=== PATIENT | female | born 1995 | race Caucasian/White ===

== ENCOUNTER 2016-12-06 14:16 | Emergency (ER) | payer SELFPAY ==
--- NOTE | 2016-12-06 14:57 | EDM.PDOC ---
ED HPI GENERAL MEDICAL PROBLEM - General Chief Complaint: Head Injury Stated Complaint: POSSIBLE CONCUSSION Time Seen by Provider: 12/06/16 14:57 Source of Information: Reports: Patient - History of Present Illness INITIAL COMMENTS - FREE TEXT/NARRATIVE: Patient is here today for evaluation of several complaints. She initially reports that she was playing with a squirt gun and a piece broke part of it hit her in the right side of the head on Sunday evening. She continues to have right-sided headaches and fullness behind bilateral eyes. She also reports a nonproductive persistent cough and fever as well as myalgias. She has a decreased appetite but is drinking fluids well. She denies any sinus symptoms or chest/abdominal pain Right Head Pain Score (Numeric/FACES): 7 - Related Data Allergies Allergy/AdvReac Type Severity Reaction Status Date / Time No Known Allergies Allergy Verified 03/11/16 02:10 Home Meds: Home Meds . [No Known Home Meds] 12/06/16 [History] Past Medical History - Past Health History Medical/Surgical History: Denies Medical/Surgical History Psychiatric History: Reports: Anxiety, Depression, Suicide Attempt Other Psychiatric History: stopped taking prozac on her own- at least over a year ago Social & Family History - Tobacco Use Smoking Status *Q: Never Smoker - Alcohol Use Days Per Week of Alcohol Use: 7 Number of Drinks Per Day: 2 Total Drinks Per Week: 14 - Recreational Drug Use Recreational Drug Use: No ED ROS GENERAL - Review of Systems Review Of Systems: See Below Constitutional: Reports: Fever, Chills, Weakness, Fatigue HEENT: Reports: Vision Change. Denies: Ear Discharge, Ear Pain, Eye Discharge, Eye Pain, Sinus Problem Respiratory: Reports: Cough. Denies: Shortness of Breath, Wheezing, Sputum Cardiovascular: Reports: No Symptoms Endocrine: Reports: Fatigue GI/Abdominal: Reports: Decreased Appetite. Denies: Abdominal Pain, Nausea, Vomiting Musculoskeletal: Reports: Muscle Pain. Denies: Neck Pain, Back Pain Skin: Reports: No Symptoms Neurological: Reports: No Symptoms Psychiatric: Reports: No Symptoms ED EXAM, HEAD INJURY - Physical Exam Exam: See Below Exam Limited By: No Limitations General Appearance: Alert, WD/WN, No Apparent Distress Head: Normocephalic, Scalp Hematoma (swelling without ecchymosis above right temporal area). No: Scalp Lacerations, Scalp Abrasions, Active Bleeding Eyes: Right Eye: Normal Inspection, PERRL Ears: Normal External Exam, Normal Canal, Normal TMs Nose: Normal Inspection, Normal Mucousa Throat/Mouth: Normal Inspection, Normal Oropharynx Neck: Non-Tender, Full Range of Motion Respiratory: No Respiratory Distress, Lungs Clear, Normal Breath Sounds Cardiovascular: Normal Peripheral Pulses, Regular Rate, Rhythm, No Murmur GI/Abdominal Exam: Normal Bowel Sounds, Soft, Non-Tender Back Exam: Normal Inspection Course - Vital Signs Last Recorded V/S: Last Vital Signs Temp 101.2 F H 12/06/16 14:47 Pulse 112 H 12/06/16 14:47 Resp 20 12/06/16 14:47 BP 129/81 12/06/16 14:47 Pulse Ox 97 12/06/16 14:47 - Orders/Labs/Meds Orders: Active Orders 24 hr Category Date Time Status Visual Acuity [Vision Test] [RC] ASDIRECTED Care 12/06/16 15:42 Active CXR [Chest 2V] [CR] Stat Exams 12/06/16 15:05 Taken Head wo Cont [CT] Stat Exams 12/06/16 16:40 Taken Labs: Laboratory Tests 12/06/16 12/06/16 12/06/16 Range/Units 15:05 15:05 16:25 WBC 8.74 (3.98-10.04) K/mm3 RBC 4.25 (3.98-5.22) M/mm3 Hgb 13.1 (11.2-15.7) gm/L Hct 37.9 (34.1-44.9) % MCV 89.2 (79.4-94.8) fl MCH 30.8 (25.6-32.2) pg MCHC 34.6 (32.2-35.5) g/dl RDW Std Deviation 37.8 (36.4-46.3) fL Plt Count 234 (182-369) K/mm3 MPV 8.8 L (9.4-12.3) fl Neutrophils % (Manual) 87 H (40-60) % Band Neutrophils % 0 (0-10) % Lymphocytes % (Manual) 7 L (20-40) % Atypical Lymphs % 0 % Monocytes % (Manual) 5 (2-10) % Eosinophils % (Manual) 1 (0.7-5.8) % Basophils % (Manual) 0 L (0.1-1.2) Platelet Estimate Adequate Plt Morphology Comment Normal RBC Morph Comment Normal HCG, Qual Negative (NEGATIVE) Urine Color Yellow (Yellow) Urine Appearance Clear (Clear) Urine pH 6.0 (5.0-8.0) Ur Specific [place] 1.015 (1.005-1.030) Urine Protein 2+ H (Negative) Urine Glucose (UA) Negative (Negative) Urine Ketones Negative (Negative) Urine Occult Blood 1+ H (Negative) Urine Nitrite Negative (Negative) Urine Bilirubin Negative (Negative) Urine Urobilinogen 1.0 (0.2-1.0) Ur Leukocyte Esterase 1+ H (Negative) Urine RBC 0-5 (0-5) /hpf Urine WBC 5-10 H (0-5) /hpf Ur Epithelial Cells 5-10 H (0-5) /hpf Amorphous Sediment Few H (NOT SEEN) /hpf Urine Bacteria Few (FEW) /hpf Urine Mucus Not seen (FEW) /hpf Meds: Medications Discontinued Medications Generic Name Dose Route Start Last Admin Trade Name Edith PRN Reason Stop Dose Admin Ibuprofen 600 mg 12/06/16 16:24 12/06/16 16:32 Motrin PO 12/06/16 16:25 600 mg ONETIME ONE Administration Ondansetron HCl 4 mg 12/06/16 16:23 12/06/16 16:33 Zofran Odt PO 12/06/16 16:24 4 mg ONETIME ONE Administration - Re-Assessments/Exams Free Text/Narrative Re-Assessment/Exam: Neurologic exam is completely normal. She does have a little bit of a hematoma above her right congregation but no ecchymosis associated with this. As her headaches have persisted without improvement since this injury will obtain CT of her head today. Lungs CTA bilaterally. Chest x-ray was unremarkable official radiology report pending. WBC 8,740 and influenza was negative. I suspect viral etiology for her cough. As she is only on day 3 of this I do not feel antibiotics are indicated at this point. If symptoms should worsen or persist she will follow-up with myself or Tamy Zaldivar in the clinic. 12/06/16 16:[address] was normal, "no acute intracerebral abnormality or injury". Discussed concussion symptoms with the patient and need for brain rest and avoidance of electronic use patient verbalized understanding of this. Should monitor for any worsening of headaches or changes in behavior or vision. If these should occur can follow up in the ER. Advised patient to take Tylenol or ibuprofen as needed for headaches. Viral URI symptoms should continue to improve over the next 7-10 days. If they persist or worsen she can call me in the clinic and can consider antibiotics at that time. 12/06/16 17:52 Departure - Departure Time of Disposition: 17:51 Disposition: Home, Self-Care 01 Condition: Good Clinical Impression: Viral URI with cough, Concussion with no loss of consciousness Concussion Qualifiers: Encounter type: initial encounter Loss of consciousness presence/duration: without LOC Qualified Code(s): S06.0X0A - Concussion without loss of consciousness, initial encounter - Discharge Information Instructions: Post-Concussion Syndrome, [id number] Referrals: PCP,None [Primary Care Provider] - Forms: ED Department Discharge Additional Instructions: You likely sustained a concussion, your CT of her head was normal and there was no sign of a brain bleed. I recommend rest and minimal brain stimulation/electronic use. Take Tylenol or ibuprofen as needed for your headaches. Your chest x-ray and influenza screening were negative. I suspect her cough is due to a virus. Viruses typically resolve in 7-10 days. If at this point it has worsened or persisted contact myself or Tamy Zaldivar in the clinic or certainly return to ER if needed. - My Orders Last 24 Hours: My Active Orders 12/06/16 15:05 CXR [Chest 2V] [CR] Stat 12/06/16 15:42 Visual Acuity [Vision Test] [RC] ASDIRECTED 12/06/16 16:40 Head wo Cont [CT] Stat - Assessment/Plan Last 24 Hours: My Active Orders 12/06/16 15:05 CXR [Chest 2V] [CR] Stat 12/06/16 15:42 Visual Acuity [Vision Test] [RC] ASDIRECTED 12/06/16 16:40 Head wo Cont [CT] Stat
[2016-12-06] MEDS ORDERED: Ondansetron 4 MG Tab.DIS PO ONE (16:23)
[2016-12-06] MEDS ORDERED: Ibuprofen 600 MG Tab PO ONE (16:24)
[2016-12-06 18:49] VITALS: BP 110/72
--- NOTE | 2016-12-10 14:43 | CR ---
Chest: 2 views of the chest were obtained. Comparison: Previous chest x-ray of 09/29/15. Heart size and mediastinum are normal. Lungs are clear. Bony structures are unremarkable. Impression: 1. Nothing acute is identified on 2 view chest x-ray. Diagnostic code #1
--- NOTE | 2016-12-10 14:53 | CT ---
Head CT Technique: Multiple axial sections through the brain were obtained. Intravenous contrast was not utilized. Comparison: No previous intracranial imaging. Findings: Ventricles along with basal cisterns and sulci over the convexities are within normal limits for the patient's age. No abnormal parenchymal densities are seen. No evidence of intracranial hemorrhage. No midline shift or mass effect is seen. Bone window settings were reviewed which show no discrete calvarial abnormality. Mild mucosal thickening is seen within the ethmoid sinuses as well as left maxillary sinus. Impression: 1. Incidental sinus findings. No acute intracranial abnormality is seen. Diagnostic code #2 I agree with preliminary report issued by [facility] ([facility] report finalized on 12/06/16, 6:48 PM Central Time)
== END 2016-12-06 18:04 | disposition home or self-care (01) ==
LOC: JD.ED 14:16
DX: S06.0X0A Concussion without loss of consciousness, initial encounter (principal); J06.9 Acute upper respiratory infection, unspecified; B97.89 Other viral agents as the cause of diseases classified elsewhere; W22.8XXA Striking against or struck by other objects, initial encounter
CPT/HCPCS: 36415; 70450; 71020; 81001; 84703; 85025; 87804; 99285; A9270; 99284

== ENCOUNTER 2017-10-01 16:47 | Emergency (ER) | payer BC ==
[2017-10-01] MEDS ORDERED: Ondansetron 4 MG/2 ML SDV ONE (17:55)
[2017-10-01] MEDS ORDERED: Dextrose 5%-0.9% NaCl 1,000 ML ONE (17:55)
[2017-10-01] MEDS ORDERED: HYDROmorphone 0.5 MG/0.5 ML SYRINGE ONE (17:56)
[2017-10-01] MEDS ORDERED: Acetaminophen 325 MG Tab ONE (20:30)
--- NOTE | 2017-10-02 13:03 | EDM.PDOC ---
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 today. She states she is known to be by home test. Last normal menstrual period was estimated to be around the end of July. Cycles are usually on time and fairly regular. She's not been using any form of control for the last 6 months. She reports this is her second . First ended with therapeutic . She is not sure of her blood type. She states she soaked a super tampon in approximately a half an hour's time from 1500 to 1530 hrs. today. Associated lower abdominal cramping pain worse than her normal menstrual cramps. Of note she indicates that on last week i.e. september she developed a severe lower back ache that persisted for a day and a half. There is associated with diffuse lower abdominal discomfort but no vaginal bleeding. No urinary tract symptoms. All function is otherwise normal. She's had no previous abdominal surgeries. At present she rates her pain as a 5-6 out of 10. He states earlier at 1500 hrs. it was a 10 out of 10. Onset: Today Onset Date: 10/01/17 Onset Time: 15:00 Duration: Hour(s): Location: Reports: Abdomen (Diffuse lower abdominal cramping pain associated with bright red vaginal bleeding. She reports initial flow was very heavy soaking a super tampon in about a half an hour's time. Bleeding was subsequently let up.) Quality: Reports: Other Severity: Moderate (Lower abdominal cramping pain with vaginal bleeding) Improves with: Reports: None Worsens with: Reports: None Context: Reports: Other (Known to be with confirmatory home test.). Denies: Activity, Exercise, Lifting, Sick Contact, Trauma Associated Symptoms: Reports: Other (Breasts remained tender but not as bad as they were initially. 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 : 2 Para: 0 (First ended with therapeutic .) Psychiatric History: Reports: Anxiety, Depression, Suicide Attempt Other Psychiatric History: stopped taking prozac on her own- at least over a year ago Social & Family History - Tobacco Use Smoking Status *Q: Never Smoker Second Hand Smoke Exposure: Yes - Caffeine Use Caffeine Use: Reports: Coffee, Energy Drinks, Soda - Alcohol Use Days Per Week of Alcohol Use: 7 Number of Drinks Per Day: 2 Total Drinks Per Week: 14 - Recreational Drug Use Recreational Drug Use: No - Living Situation & Occupation Living situation: Reports: Single Occupation: Employed ED ROS GENERAL - Review of Systems Review Of Systems: See Below Constitutional: Reports: No Symptoms HEENT: Reports: No Symptoms Respiratory: Reports: No Symptoms Cardiovascular: Reports: No Symptoms Endocrine: Reports: Fatigue GI/Abdominal: Reports: Abdominal Pain (See history of present illness) : Reports: Other (Heavy bleeding per vagina bright red blood.) Musculoskeletal: Reports: No Symptoms ( Known to be ) Skin: Reports: No Symptoms Neurological: Reports: No Symptoms ED EXAM - Physical Exam Exam: See Below Exam Limited By: Uncooperative General Appearance: WD/WN, Anxious, Mild Distress Eye Exam: Bilateral Eye: Normal Inspection Throat/Mouth: Normal Inspection, Normal Lips, Normal Oropharynx Head: Atraumatic, Normocephalic Neck: Normal Inspection, Supple, Non-Tender, Full Range of Motion. No: Lymphadenopathy (L), Lymphadenopathy (R) Respiratory/Chest: No Respiratory Distress, Lungs Clear, Normal Breath Sounds, No Accessory Muscle Use, Chest Non-Tender, Respiratory Distress Cardiovascular: Normal Peripheral Pulses, Regular Rate, Rhythm, No Edema, No Gallop, No Murmur, No Rub GI/Abdominal Exam: Normal Bowel Sounds, Soft, No Organomegaly, Tender. No: Guarding, Rigid (Very slight tenderness suprapubically. No guarding rebound or peritoneal signs), Rebound (Female) Exam: Vaginal Bleeding (Mild), Other (Uterus is retroverted and clinically is normal in size. No adnexal masses were appreciated or tenderness.) . No: Adnexal Mass (L), Adnexal Mass (R), Adnexal Tenderness, Cervical Dilatation, Products of Conception, Tissue Present in Cervix/Vagina, Uterine Tenderness Back Exam: Normal Inspection, Full Range of Motion. No: CVA Tenderness (L), CVA Tenderness (R) Extremities: Normal Inspection, Normal Range of Motion, Non-Tender, No Pedal Edema Neurological: Alert, Oriented, CN II-XII Intact, Normal Cognition, Normal Gait Psychiatric: Anxious Skin Exam: Warm, Dry (Mildly anxious), Intact, Normal Color, No Rash Course - Orders/Labs/Meds Orders: Active Orders 24 hr Category Date Time Status OB Transvaginal [US] Routine Exams 10/01/17 18:30 Taken PATIENT RETYPE [BBK] Routine Lab 10/01/17 17:57 Results TYPE AND SCREEN [BBK] Routine Lab 10/01/17 17:57 Results Labs: Laboratory Tests 10/01/17 10/01/17 10/01/17 Range/Units 17:57 17:57 17:57 WBC 10.65 H (3.98-10.04) K/mm3 RBC 4.42 (3.98-5.22) M/mm3 Hgb 13.5 (11.2-15.7) gm/L Hct 39.4 (34.1-44.9) % MCV 89.1 (79.4-94.8) fl MCH 30.5 (25.6-32.2) pg MCHC 34.3 (32.2-35.5) g/dl RDW Std Deviation 37.7 (36.4-46.3) fL Plt Count 378 H (182-369) K/mm3 MPV 8.7 L (9.4-12.3) fl Neutrophils % (Manual) 65 H (40-60) % Band Neutrophils % 0 (0-10) % Lymphocytes % (Manual) 26 (20-40) % Atypical Lymphs % 0 % Monocytes % (Manual) 5 (2-10) % Eosinophils % (Manual) 4 (0.7-5.8) % Basophils % (Manual) 0 L (0.1-1.2) Toxic Granulation Few Platelet Estimate Adequate RBC Morph Comment Normal Sodium 138 (136-145) mEq/L Potassium 3.8 (3.5-5.1) mEq/L Chloride 104 (98-107) mEq/L Carbon Dioxide 23 (21-32) mEq/L Anion Gap 14.8 (5-15) BUN 12 (7-18) mg/dL Creatinine 0.7 (0.55-1.02) mg/dL Est Cr Clr Drug Dosing TNP Estimated GFR (MDRD) > 60 (>60) mL/min BUN/Creatinine Ratio 17.1 (14-18) Glucose 107 H (74-106) mg/dL Calcium 9.4 (8.5-10.1) mg/dL Total Bilirubin 0.3 (0.2-1.0) mg/dL AST 17 (15-37) U/L ALT 22 (14-59) U/L Alkaline Phosphatase 44 L (46-116) U/L Total Protein 7.4 (6.4-8.2) g/dl Albumin 3.8 (3.4-5.0) g/dl Globulin 3.6 gm/dL Albumin/Globulin Ratio 1.1 (1-2) HCG, Qual Positive H (NEGATIVE) Blood Type Gel Antibody Screen 10/01/17 Range/Units 17:57 WBC (3.98-10.04) K/mm3 RBC (3.98-5.22) M/mm3 Hgb (11.2-15.7) gm/L Hct (34.1-44.9) % MCV (79.4-94.8) fl MCH (25.6-32.2) pg MCHC (32.2-35.5) g/dl RDW Std Deviation (36.4-46.3) fL Plt Count (182-369) K/mm3 MPV (9.4-12.3) fl Neutrophils % (Manual) (40-60) % Band Neutrophils % (0-10) % Lymphocytes % (Manual) (20-40) % Atypical Lymphs % % Monocytes % (Manual) (2-10) % Eosinophils % (Manual) (0.7-5.8) % Basophils % (Manual) (0.1-1.2) Toxic Granulation Platelet Estimate RBC Morph Comment Sodium (136-145) mEq/L Potassium (3.5-5.1) mEq/L Chloride (98-107) mEq/L Carbon Dioxide (21-32) mEq/L Anion Gap (5-15) BUN (7-18) mg/dL Creatinine (0.55-1.02) mg/dL Est Cr Clr Drug Dosing Estimated GFR (MDRD) (>60) mL/min BUN/Creatinine Ratio (14-18) Glucose (74-106) mg/dL Calcium (8.5-10.1) mg/dL Total Bilirubin (0.2-1.0) mg/dL AST (15-37) U/L ALT (14-59) U/L Alkaline Phosphatase (46-116) U/L Total Protein (6.4-8.2) g/dl Albumin (3.4-5.0) g/dl Globulin gm/dL Albumin/Globulin Ratio (1-2) HCG, Qual (NEGATIVE) Blood Type A NEGATIVE Gel Antibody Screen Negative Meds: Medications Discontinued Medications Generic Name Dose Route Start Last Admin Trade Name Freq PRN Reason Stop Dose Admin Acetaminophen Confirm 10/01/17 20:30 Tylenol Administered 10/01/17 20:31 Dose 325 mg .ROUTE .STK-MED ONE Hydromorphone HCl Confirm 10/01/17 17:56 Dilaudid Administered 10/01/17 17:57 Dose 0.5 mg .ROUTE .STK-MED ONE Dextrose/Sodium Chloride Confirm 10/01/17 17:55 Dextrose 5%-Normal Saline Administered 10/01/17 17:56 Dose 1,000 mls @ as directed .ROUTE .STK-MED ONE Ondansetron HCl Confirm 10/01/17 17:55 Zofran Administered 10/01/17 17:56 Dose 4 mg .ROUTE .STK-MED ONE - Radiology Interpretation Free Text/Narrative:: 22-year-old female presents to the ED with heavy bleeding per vagina starting at 1500 hrs. today. She indicates that she developed sudden onset of gushing blood per vagina and soaked his super tampon within about 30 minutes. Suspect the bleeding has led up. Associated diffuse lower abdominal cramping pain worse than her usual menstrual cycle pain. She is known to be by home testing. Thus trimester. Was around the end of July. She's not been using any form control for the last 6 months. She is 2 para 0. First ended with therapeutic . She reports that she did require shots after this therapeutic suggesting that she may be Rh-. At present she is not bleeding all that heavy. Vital signs are stable. Benign abdominal examination. Pelvic examination reveals no adnexal masses or tenderness. Uterus is retroverted and appears almost normal in size. Cervix is closed. Bright red blood on gloved fingers. Plan IV normal saline at 150 mils per hour. Patient will be given Dilaudid 0.5 mg IV with Zofran 4 mg IV for relief of abdominal cramping pain and to facilitate transvaginal ultrasound. Routine labs ordered including a quantitative beta-hCG and blood type and screen. - Re-Assessments/Exams Free Text/Narrative Re-Assessment/Exam: 10/01/17 19:09 Labs reveal a white count of 10.65 with 65% neutrophils and no bands reported. Hemoglobin 13.5 with hematocrit of 39.4. Platelets were normal at 378,000. Chemistry and renal function was completely normal. Glucose 107. Calcium was 9.4. Liver function normal other than a low alkaline phosphatase at 44. Beta-hCG was listed as positive. Quantitative beta-hCG inadvertently did not get ordered by nursing staff. He was therefore we ordered. Also the blood type and screen is not yet available. 10/01/17 19:34 patient transvaginal ultrasound is yet to be completed. Also the blood type and screen and quantitative beta-hCG are not yet available. Therefore care will be assumed by physician grants assistant Caroline Dia. She will await the results of these tests as is unclear how long this will take. Of note the computer system remains down at this time and therefore everything is being put in to the computer at a later date. 10/02/17 13:15 this information is eating entered after the patient has been discharged from the emergency room. The computer system was down until 3:00 in the morning. Her transvaginal ultrasound revealed the uterus to be 7.4 x 4.6 cm with a proximal me 11 mm thickness of the endometrium. There was no evidence of an intrauterine gestation. The right ovary was 3.8 x 1.8 x 2.2 cm. Posterior to the right ovary there is a cystic area about 2.7 cm in diameter. This is felt to be a paraovarian cyst although an ectopic in this area cannot be ruled out. There was normal blood flow to this area. The left ovary was 3.4 x 1.7 x 2.3 cm. Normal blood flow as well. There is some free fluid seen in the cul-de-sac more to the left of the midline. Fluid volume is estimated to be about 12 mils in the cul-de-sac. There is therefore no evidence of an intrauterine gestation. Ectopic cannot therefore be ruled out. It is my understanding that her blood type came back at type a negative and that she did in fact receive Win[employer]ho although I cannot confirm this as there is no order for entered into the computer. From what I can assess her quantitative beta hCG came back at 30 low indicating either very early or failure which I believe to be the latter. Her chemistry was otherwise completely normal. There are no notes to indicate whether or not the patient was advised follow-up with INTERNAL SALES ENGINEER for repeat ultrasound in 3-4 days time and a repeat beta hCG. I am suspicious that the severe onset of low back pain that she experienced on September 27 may have represented ruptured of the corpus luteum of and that's where the fluid in the cul-de-sac occurred from. It results in loss of the . Departure - Departure Time of Disposition: 22:30 Disposition: Home, Self-Care 01 Condition: Fair Clinical Impression: Incomplete miscarriage with blood clot - Discharge Information Referrals: PCP,None [Primary Care Provider] - Forms: ED Department Discharge Additional Instructions: Evaluation the emergency room today in regards to acute onset of bright red vaginal bleeding at 1500 hrs. today. Want to be . test was confirmed in the ED but the amount of hormone of and the blister was found to be very low at only 30 which indicates either very early or failed . Transvaginal ultrasound revealed no sign of an intrauterine . There were some cysts adjacent to the right ovary and some free fluid in the pelvis. It is advised that she follow up with INTERNAL SALES ENGINEER in 4 days time for repeat pelvic ultrasound and quantitative beta hCG to ensure the has failed and that the hCG has returned to normal. - My Orders Last 24 Hours: My Active Orders 10/01/17 18:30 OB Transvaginal [US] Routine - Assessment/Plan Last 24 Hours: My Active Orders 10/01/17 18:30 OB Transvaginal [US] Routine
--- NOTE | 2017-10-04 10:22 | US ---
First trimester obstetrical ultrasound: Multiple real-time images were obtained transvaginally. Comparison: No prior study. Uterus is retroverted. No intrauterine gestational sac is seen. There is free fluid being seen within the pelvis. Follicles are seen within both ovaries. Nabothian cysts are also present. Exophytic cystic areas are seen within the left adnexa measuring 1.8 cm and 1.0 cm. Slightly heterogeneous area is seen off the right ovary and difficult to completely exclude an ectopic . Impression: 1. Two exophytic cystic areas off the left ovary. Heterogeneous area off the right ovary. Exact etiology is not apparent on this study. Difficult to completely exclude ectopic if patient has positive test. No intrauterine is seen. 2. Free fluid within the pelvis which appears to be simple at this time. Diagnostic code #3 I agree with preliminary report from [facility], finalized at 10/01/17, 10:29 PM Central Time
== END 2017-10-02 05:59 | disposition home or self-care (01) ==
LOC: JD.ED 16:47
DX: O03.4 Incomplete spontaneous abortion without complication (principal); F41.9 Anxiety disorder, unspecified; F32.9 Major depressive disorder, single episode, unspecified
CPT/HCPCS: 36415; 76817; 80053; 84702; 84703; 85025; 86850; 86900; 86901; 96361; 96374; 96375; 99284; A9270; J1170; J2405; J2790; J7042; 99283